=== PATIENT | male | born 1970 | race Caucasian/White ===

== ENCOUNTER 2020-12-10 11:21 | Day surgery (SDC) | payer OTHER ==
[2020-12-10] MEDS ORDERED: PERCOCET 5/325M1 TAB PO (14:58)
[2020-12-10] MEDS ORDERED: TAMSULOSIN HCL0.4 MG PO (14:58)
[2020-12-10 15:02] VITALS: BP 124/75
== END 2020-12-10 15:23 | disposition home or self-care (01) | DRG 694 ==
LOC: ORM 11:21
PROVIDERS: ATTEND Urology
PROC: 0TF4XZZ Fragmentation in Left Kidney Pelvis, External Approach (ICD-10-PCS; principal; 2020-12-10)
DX: N20.0 Calculus of kidney (principal); E78.5 Hyperlipidemia, unspecified; Z87.442 Personal history of urinary calculi; Z20.822 Contact with and (suspected) exposure to COVID-19
CPT/HCPCS: J0131

== ENCOUNTER 2022-01-11 16:20 | Observation (INO) | payer OTHER ==
[2022-01-11] VITALS (18 sets, daily range): BP systolic 93–125; BP diastolic 56–76
[~2022-01-11] VITALS: Ht 167.6 cm; Wt 100.0 kg
[~2022-01-11 16:20] MED LIST: PERCOCET 5/325M1 TAB PO; TAMSULOSIN HCL0.4 MG PO
[2022-01-11 17:28] LABS: HEMOGLOBIN 14.4 g/dl (14.0-18.0); IMMATURE GRANULOCYTES 0.3 % (0.0-5.0); MEAN CELL VOLUME 96.8 fL CALC (80.0-100.0); MEAN CORPUSCULAR HGB 33.2 pG CALC (26.0-32.0); MEAN CORPUSCULAR HGB CONC 34.3 g/dL CAL (32.0-36.0); NEUT# 6.41 thou/uL (1.82-7.42); RED BLOOD COUNT 4.34 mill/uL (4.70-6.10); RED CELL DISTRI WIDTH 12.3 % (11.5-15.5)
[2022-01-11 17:40] LABS: INTERNATIONAL NORMALIZED RATIO 1.1 RATIO (0.7-1.3); PROTHROMBIN TIME 11.1 SECONDS (9.0-12.5)
[2022-01-11 17:42] LABS: ALBUMIN 4.4 g/dL (3.2-5.0); ALKALINE PHOSPHATASE 55 u/l (38-126); ANION GAP 10 (6-22 (CALC)); BILIRUBIN, TOTAL 0.4 mg/dL (0.0-1.4); BUN 12 mg/dL (9-20); BUN/CREATININE RATIO 12 (12-20 (CALC)); CARBON DIOXIDE 30 mmol/l (22-30); CHLORIDE 105 mmol/l (95-108); GFR > 60 ML/MIN (>=60 (CALC)); GFR FOR AFR.AMER. > 60 ML/MIN (>=60 (CALC)); LIPASE 37 u/l (23-300); POTASSIUM 3.7 mmol/l (3.5-5.1); SGOT/AST 19 u/l (17-59); SODIUM 140 mmol/l (137-146); TOTAL PROTEIN 7.8 g/dL (6.3-8.2)
[2022-01-11 17:54] LABS: MYOGLOBIN 24 ng/mL (0 - 121)
[2022-01-11 19:26] LABS: URINE BILIRUBIN - DIPSTICK NEGATIVE (NEGATIVE); URINE BLOOD DIPSTICK NEGATIVE (NEGATIVE); URINE COLOR YELLOW; URINE GLUCOSE - DIPSTICK NEGATIVE (NEGATIVE); URINE KETONE NEGATIVE (NEGATIVE); URINE LEUK ESTERASE NEGATIVE (NEGATIVE); URINE PH 6.5 (4.5-8.0); URINE PROTEIN - DIPSTICK NEGATIVE (NEG-TRACE); URINE SPECIFIC GRAVITY >=1.030; URINE UROBILINOGEN - DIPSTICK 0.2 E.U./dL (0.2)
[2022-01-11 19:28] LABS: URINE NITRITE - DIPSTICK NEGATIVE (Negative)
[2022-01-12 00:03] VITALS: BP 101/53
[2022-01-12 04:10] VITALS: BP 90/54
[2022-01-12 08:00] VITALS: BP 108/75
[2022-01-12 11:06] VITALS: BP 112/69
[2022-01-12] MEDS ORDERED: IBUPROFEN600 MG PO (11:13)
[2022-01-12] MEDS ORDERED: MEDDOSEPAK PO (11:13)
[2022-01-12] MEDS ORDERED: ASPIRIN 81 LOW81 MG PO (11:13)
[2022-01-12 15:38] LABS: CHOLESTEROL HDL RATIO 6.4 (<4.4 (CALC))
== END 2022-01-12 15:00 | DRG 313 ==
LOC: ED 16:20 → ED-I 18:10 → ED 18:38 → MS2 18:39
PROVIDERS: Nurse Practitioner; ADMIT Internal Medicine; ATTEND Internal Medicine
DX: R07.2 Precordial pain (principal); M54.50 Low back pain, unspecified; E78.00 Pure hypercholesterolemia, unspecified; Z87.442 Personal history of urinary calculi; Z20.822 Contact with and (suspected) exposure to COVID-19
CPT/HCPCS: G0378; J1650